=== PATIENT | male | born 1965 | race Asian ===

== ENCOUNTER 2020-08-15 06:31 | Day surgery (SDC) | payer OTHER, SELFPAY ==
[~2020-08-15] VITALS: Ht 170.2 cm; Wt 81.6 kg
[2020-08-15] MEDS ORDERED: MIDAZOLAM 5 MG/5 ML VIAL ONE (07:33)
[2020-08-15] MEDS ORDERED: fentaNYL citrate 0.05 MG/ML VIAL ONE (07:33)
[2020-08-15] MEDS ORDERED: diphenhydrAMINE 50 MG/ML VIAL ONE (07:33)
[2020-08-15] MEDS ORDERED: LIDOCAINE 2% 100 MG/5 ML UJET TP ONE (07:34)
[2020-08-15] MEDS ORDERED: fentaNYL citrate 0.05 MG/ML VIAL IVP ONE (08:55)
[2020-08-15] MEDS ORDERED: MIDAZOLAM 2 MG/2 ML VIAL IVP ONE (08:55)
== END 2020-08-15 09:00 | disposition home or self-care (01) ==
LOC: MOR 06:31 → MMU 06:32 → MOR 09:00
PROVIDERS: ATTEND Internal Medicine Gastroenterology
DX: Z12.11 Encounter for screening for malignant neoplasm of colon (principal); K63.5 Polyp of colon; K29.70 Gastritis, unspecified, without bleeding; K44.9 Diaphragmatic hernia without obstruction or gangrene; K21.9 Gastro-esophageal reflux disease without esophagitis; I10 Essential (primary) hypertension; F17.210 Nicotine dependence, cigarettes, uncomplicated; Z79.899 Other long term (current) drug therapy
CPT/HCPCS: 43239; 45385; J2250; J3010; U0003; J1200